=== PATIENT | female | born 1945 | race Caucasian/White ===

== ENCOUNTER → 2016-08-15 | Outpatient (CLI) | payer OTHER, MEDICARE ==
[~2016-08-15] MED LIST: ALBUAER2 INH; ASPI-232 PO; ATV5X PO; AZEL0.056 NAE; CYM/60 PO; DESO0.0562 TOP; DICL1GEL12 TOP; DONE10TA12 PO; DULO-24 PO; EYED OPB; FLUT1INH; IPRA1AER2 INH; LDXCR60 TOP; LISI-461 PO; LPR25 PO; LSX40 PO; MCRK/10 PO; MELO7.5T5 PO; MONT1TAB3 PO; OMEG10007 PO; OXGN; PANT1TAB48 PO; POLYCAP4 PO; POTA-327 PO; PRVC20 PO; RANI1TAB PO; SUCR1TAB PO; SULF800T23 PO; THYR15TA PO; THYR90TA PO
--- NOTE | 2016-08-15 15:19 | DIAGNOSTIC IMAGING REPORT ---
LEFT KNEE 2 VIEWS CLINICAL HISTORY: Left knee pain. FINDINGS: AP and crosstable lateral views of the left knee are compared to study dated 11/01/2015. The skeletal structures are osteopenic. No fracture is seen. There is mild to moderate tricompartmental degenerative joint space narrowing, greatest in the medial and patellofemoral compartments. There is mild degenerative beaking of the tibial spine. Large patellar enthesophytes are observed. There is no joint effusion. The overlying soft tissues are within normal limits. IMPRESSION: Osteopenia and arthritic change as above. No acute bony abnormality is seen in the left knee. There has been no significant change from 11/01/2015. Electronically signed by: Manish Coburn M.D. 08/15/2016 3:18 PM Dictated Date/Time: 08/15/2016 3:16 PM
--- NOTE | 2016-08-15 15:28 | DIAGNOSTIC IMAGING REPORT ---
RIGHT KNEE 1 OR 2 VIEWS ROUTINE CLINICAL HISTORY: Right knee pain status post trauma COMPARISON: 07/17/2016 DISCUSSION: No acute fractures are visualized. There is no radiographic evidence of a joint effusion. There is mild cortical thickening involving the medial aspect the proximal tibial metaphysis. This remains unchanged from prior studies dating back to October 2015.. There are mild degenerative changes present. IMPRESSION: 1. No acute fractures Electronically signed by: Olivier Means M.D. 08/15/2016 3:26 PM Dictated Date/Time: 08/15/2016 3:24 PM
--- NOTE | 2016-08-15 15:29 | DIAGNOSTIC IMAGING REPORT ---
RIBS BILATERAL WITH PA CHEST CLINICAL HISTORY: Fall. Bilateral rib pain. COMPARISON STUDY: Chest radiograph June 09, 2016. FINDINGS: There is no pneumothorax or pleural effusion. Evaluation is difficult given suboptimal penetration. There are median sternotomy wires. Cardiomegaly is unchanged. There is pulmonary vascular congestion. Prostatic aortic valve is noted as well as a prosthetic mitral valve. There are acute mildly displaced fractures of the left fifth, sixth and seventh ribs with a suspected acute nondisplaced fracture of the left eighth rib. There are acute mildly displaced fractures of the right fifth and sixth ribs. IMPRESSION: 1. No pneumothorax. 2. Acute mildly displaced fractures of the left fifth, sixth and seventh ribs with a suspected acute nondisplaced fracture of the left eighth rib. 3. Acute mildly displaced fractures of the right fifth and sixth ribs. 4. Linear left basilar opacity which favors atelectasis. Electronically signed by: Darvin Brand M.D. 08/15/2016 3:28 PM Dictated Date/Time: 08/15/2016 3:22 PM [facility]
== END | disposition home or self-care (01) ==
LOC: C.RAD1850 14:11
PROVIDERS: ATTEND Internal Medicine
DX: R07.81 Pleurodynia (principal); M25.569 Pain in unspecified knee

== ENCOUNTER → 2016-08-26 | Outpatient (CLI) | payer OTHER, MEDICARE ==
[2016-08-26 17:34] LABS: BASO % 0.3 %; BASO ABS # 0.03 K/uL (0-0.2); COMPLETE YES; EOS % 1.9 %; HEMATOCRIT 38.9 % (37-47); IG% 0.2 %; LYMPH % 19.9 %; LYMPH ABS # 1.94 K/uL (1.2-3.4); MEAN CELL VOLUME 79.1 fL (80-100); MEAN CORPUSCULAR HEMOGLOBIN 24.2 pg (25-34); MEAN CORPUSCULAR HGB CONC 30.6 g/dl (32-36); MEAN PLATELET VOLUME 10.4 fL (7.4-10.4); MONO % 9.9 %; NEUT % 67.8 %; PLATELET COUNT 306 K/uL (130-400); RED BLOOD COUNT 4.92 M/uL (4.2-5.4); WHITE BLOOD COUNT 9.75 K/uL (4.8-10.8)
[2016-08-26 17:48] LABS: RHEUMATOID FACTOR < 10.0 U/mL (0-15)
[2016-08-30 14:15] LABS: ALBUMIN 3.6 G/DL (3.8-4.8); CYCLIC CITRULLINATED PEPT IGG <16 UNITS (<20); GAMMA GLOBULIN 0.9 G/DL (0.8-1.7); HLA-B27** TC 528X NEGATIVE (NEGATIVE); TOTAL PROTEIN 6.5 G/DL (6.2-8.3)
== END | disposition home or self-care (01) ==
LOC: C.LAB1850 15:57
PROVIDERS: ATTEND Internal Medicine Rheumatology
DX: D64.9 Anemia, unspecified (principal); L40.9 Psoriasis, unspecified; M15.9 Polyosteoarthritis, unspecified; M81.0 Age-related osteoporosis without current pathological fracture; M25.569 Pain in unspecified knee; E55.9 Vitamin D deficiency, unspecified

== ENCOUNTER → 2016-09-04 | Outpatient (CLI) | payer OTHER, MEDICARE ==
[~2016-09-04] MED LIST changes: -SULF800T23 PO
--- NOTE | 2016-09-04 12:39 | DIAGNOSTIC IMAGING REPORT ---
RIGHT HAND 3 VIEWS CLINICAL HISTORY: Right hand pain. Fall. FINDINGS: 3 views of the right hand are compared to study dated 07/17/2016. The skeletal structures are osteopenic. There is no radiographic evidence of fracture. Osteoarthritic change is present involving the interphalangeal joints, distal greater than proximal. Erosive osteoarthritis is seen involving the second and the third distal interphalangeal joints. Milder arthritic change is also seen at the first carpometacarpal and first metacarpophalangeal joints. Mild soft tissue swelling is present around the wrist. IMPRESSION: 1. Soft tissue swelling without radiographic evidence of acute fracture. 2. Osteopenia and arthritic change as above. Findings are similar to the 07/17/2016 examination. Electronically signed by: Manish Coburn M.D. 09/04/2016 12:37 PM Dictated Date/Time: 09/04/2016 12:32 PM
== END | disposition home or self-care (01) ==
LOC: C.RAD1850 12:11
PROVIDERS: ATTEND Internal Medicine
DX: M85.832 Other specified disorders of bone density and structure, left forearm (principal); M79.641 Pain in right hand; W19.XXXA Unspecified fall, initial encounter

== ENCOUNTER → 2016-09-04 | Outpatient (CLI) | payer OTHER, MEDICARE | END | disposition home or self-care (01) | LOC: C.MAMM 12:32 | PROVIDERS: ATTEND Internal Medicine | DX: M85.832 Other specified disorders of bone density and structure, left forearm (principal) ==

== ENCOUNTER → 2016-09-17 | Outpatient (CLI) | payer OTHER, MEDICARE ==
[2016-09-17 17:34] LABS: BLOOD UREA NITROGEN 31 mg/dl (7-18); BUN/CREATININE RATIO 28.3 (10-20); CALCIUM 9.2 mg/dl (8.5-10.1); CARBON DIOXIDE 29 mmol/L (21-32); CHLORIDE 103 mmol/L (98-107); GLUCOSE 146 mg/dl (70-99); POTASSIUM 4.1 mmol/L (3.5-5.1); SODIUM 141 mmol/L (136-145)
--- NOTE | 2016-09-22 14:27 | CODING QUERY MEDICAL NECESSITY ---
SUPPORTING DIAGNOSIS NEEDED A supporting diagnosis is required for the test/procedure performed on this patient in order for us to be reimbursed by the patient's insurance. Please provide a supporting diagnosis for the following test/procedure listed below next to the test name along with your signature. *If there is no additional diagnosis for this patient that would support the following test/procedure please document that below next to the test/procedure. Test(s)/Procedure(s) that require a supporting diagnosis: * VITAMIN D 25-HYDROXY DIAGNOSIS: * DOS: 09/17/16 Provider Signature: Date: Thank you Linda Leavitt [facility] Information Management Once completed, please kindly fax back to [phone] For questions please call [phone]
== END | disposition home or self-care (01) ==
LOC: C.LABBFT 17:56
PROVIDERS: ATTEND Internal Medicine
DX: M85.80 Other specified disorders of bone density and structure, unspecified site (principal); M19.90 Unspecified osteoarthritis, unspecified site; E05.00 Thyrotoxicosis with diffuse goiter without thyrotoxic crisis or storm; E89.0 Postprocedural hypothyroidism; M81.0 Age-related osteoporosis without current pathological fracture

== ENCOUNTER → 2016-10-08 | Outpatient (CLI) | payer OTHER, MEDICARE ==
--- NOTE | 2016-10-08 15:45 | DIAGNOSTIC IMAGING REPORT ---
WHOLE BODY BONE SCAN HISTORY: Whole-body pain. LUMBAR SPINE STENOSIS RADIOTRACER: 26.4 mCi Tc-99m MDP STUDY/IMAGES: Planar anterior and posterior whole body imaging was performed 3 hours following the intravenous administration of radiotracer. COMPARISON: Lumbar spine 05/31/2013. FINDINGS: Symmetric radiotracer uptake within the calvarium favors hyperostosis as seen on the prior brain MRI. Radiotracer uptake within the shoulders and left knee consistent with degenerative change. Linear radiotracer uptake at the sternum consistent with poststernotomy changes. Multiple small focal areas of radiotracer uptake within the anterior costochondral junctions is likely due to old trauma or postoperative changes. Mild radiotracer uptake seen within the facets of the lower thoracic and lumbar spine consistent with degenerative change. Mild linear radiotracer uptake seen within the mid thoracic spine is also likely related to degenerative change. There is urine contamination overlying the lower lumbar spine and right hemipelvis on the posterior views. Suboptimal evaluation of the osseous structures due to the patient's large body habitus. IMPRESSION: Scattered areas of radiotracer uptake within the axial and appendicular skeleton as described above consistent with old posttraumatic/postoperative changes and degenerative changes. Electronically signed by: John Lemus M.D. 10/08/2016 3:44 PM Dictated Date/Time: 10/08/2016 3:35 PM
== END | disposition home or self-care (01) ==
LOC: C.NUCL 11:13
PROVIDERS: ATTEND Physical Medicine & Rehabilitation
DX: M25.561 Pain in right knee (principal); M48.06 Spinal stenosis, lumbar region

== ENCOUNTER → 2016-11-07 | Outpatient (CLI) | payer OTHER, MEDICARE ==
--- NOTE | 2016-11-07 14:18 | DIAGNOSTIC IMAGING REPORT ---
LEFT SHOULDER MIN 2 VIEWS ROUTINE CLINICAL HISTORY: Left shoulder pain COMPARISON: None. DISCUSSION: No fractures or dislocations are visualized. There is a tiny soft tissue calcification located inferior to the acromion on the internally rotated view. No destructive lesions are visualized. IMPRESSION: 1. No fractures or dislocations 2. No destructive lesions are visualized Electronically signed by: Olivier Means M.D. 11/07/2016 2:16 PM Dictated Date/Time: 11/07/2016 2:15 PM
--- NOTE | 2016-11-07 15:02 | DIAGNOSTIC IMAGING REPORT ---
RIGHT HAND 3 VIEWS HISTORY: Right HAND PAIN COMPARISON: None. FINDINGS: There is no fracture or dislocation. Soft tissue swelling at the thumb. Severe osteoarthritis at the first carpometacarpal joint. Mild scapholunate dissociation. Moderate osteoarthritis at the DIP and PIP joints. No radiopaque foreign bodies. IMPRESSION: 1. No fractures within the right hand. 2. Soft tissue swelling within the right thumb. 3. Severe osteoarthritis at the first carpometacarpal joint. Electronically signed by: John Lemus M.D. 11/07/2016 3:00 PM Dictated Date/Time: 11/07/2016 2:56 PM
--- NOTE | 2016-11-07 17:07 | DIAGNOSTIC IMAGING REPORT ---
RIGHT SHOULDER 3 VIEWS HISTORY: M25.511 Bilateral shoulder pain, unspecified [id number] Right COMPARISON: None. FINDINGS: No fractures. Mild glenohumeral joint osteoarthritis. Soft tissues are unremarkable. The right clavicle is intact. Mild inferior subluxation of the humeral head in relation to the glenoid. IMPRESSION: 1. No fractures within the right shoulder. 2. Mild inferior subluxation of the humeral head in relation to the glenoid. No definite dislocation. Electronically signed by: John Lemus M.D. 11/07/2016 5:05 PM Dictated Date/Time: 11/07/2016 2:21 PM
== END | disposition home or self-care (01) ==
LOC: C.RAD 13:40
PROVIDERS: ATTEND Physician Assistant Medical
DX: M18.11 Unilateral primary osteoarthritis of first carpometacarpal joint, right hand (principal); M25.511 Pain in right shoulder; M25.512 Pain in left shoulder

== ENCOUNTER → 2016-11-20 | Outpatient (CLI) | payer OTHER, MEDICARE | END | disposition home or self-care (01) | LOC: C.LABSPEC 09:49 | PROVIDERS: ATTEND Dermatology | DX: S81.802A Unspecified open wound, left lower leg, initial encounter (principal); X58.XXXA Exposure to other specified factors, initial encounter ==

== ENCOUNTER → 2016-12-10 | Outpatient (CLI) | payer OTHER, MEDICARE ==
--- NOTE | 2016-12-10 16:15 | DIAGNOSTIC IMAGING REPORT ---
RIGHT HAND MRI HISTORY: RIGHT HAND PAIN TECHNIQUE: Multiplanar multisequence 0.7 Jade open MRI of the right hand was performed without the use of intravenous contrast. COMPARISON STUDY: Right hand 11/07/2016. FINDINGS: Difficult evaluation of the hand due to the mild motion artifact and suboptimal resolution given the open MRI. Moderate osteoarthritis at the first carpometacarpal joint demonstrated by joint space narrowing. No definite bony destruction identified. There is a [id number] joint effusion and the first carpometacarpal joint. There is a normal marrow signal intensity seen within the adjacent visualized osseous structures. No definite fracture identified. Mild subluxation at the first carpometacarpal joint without dislocation. Soft tissue swelling within the thumb. Dorsal and bone are tendons appear to be normal in course, caliber, and signal intensity. IMPRESSION: Difficult evaluation of the hand due to mild motion artifact and suboptimal resolution on the open MRI. No definite fracture. Soft tissue swelling within the thumb and a small joint effusion at the first carpometacarpal joint. There is also moderate osteoarthritis at the first carpometacarpal joint with mild subluxation without dislocation. Electronically signed by: John Lemus M.D. 12/10/2016 4:13 PM Dictated Date/Time: 12/10/2016 4:07 PM
== END | disposition home or self-care (01) ==
LOC: C.OPENMRI 14:39
PROVIDERS: ATTEND Internal Medicine
DX: M79.643 Pain in unspecified hand (principal)

== ENCOUNTER → 2016-12-16 | Outpatient (CLI) | payer OTHER, MEDICARE ==
[2016-12-17 06:31] LABS: ESTIMATED AVERAGE GLUCOSE 137 mg/dl; HA1C FLAG Normal (Normal)
== END | disposition home or self-care (01) ==
LOC: C.LABBFT 15:22
PROVIDERS: ATTEND Internal Medicine
DX: E55.9 Vitamin D deficiency, unspecified (principal); E11.9 Type 2 diabetes mellitus without complications

== ENCOUNTER 2017-01-27 15:20 | Emergency (ER) | payer OTHER, MEDICARE ==
[~2017-01-27] VITALS: Ht 154.9 cm; Wt 102.0 kg
[~2017-01-27 15:20] MED LIST changes: -CYM/60 PO; -DONE10TA12 PO; -MCRK/10 PO
[2017-01-27 15:28] VITALS: TEMP 36.6; Ht 154.9 cm; Wt 102.0 kg
[2017-01-27] MEDS ORDERED: SODIUM CHLORIDE 0.9% 1000ML 1,000 ML IV STA (15:57)
[2017-01-27 16:10] LABS: BASO % 0.2 %; BASO ABS # 0.02 K/uL (0-0.2); COMPLETE YES; EOS % 1.4 %; HEMATOCRIT 42.4 % (37-47); IG% 0.2 %; LYMPH % 18.7 %; LYMPH ABS # 1.69 K/uL (1.2-3.4); MEAN CORPUSCULAR HEMOGLOBIN 25.9 pg (25-34); MEAN CORPUSCULAR HGB CONC 30.4 g/dl (32-36); MEAN PLATELET VOLUME 9.9 fL (7.4-10.4); MONO % 11.1 %; NEUT % 68.4 %; PLATELET COUNT 268 K/uL (130-400); RED BLOOD COUNT 4.99 M/uL (4.2-5.4); WHITE BLOOD COUNT 9.03 K/uL (4.8-10.8)
--- NOTE | 2017-01-27 16:21 | DIAGNOSTIC IMAGING REPORT ---
CHEST ONE VIEW PORTABLE CLINICAL HISTORY: Weakness COMPARISON STUDY: 08/15/2016 FINDINGS: The study is somewhat limited from a technical standpoint due to the patient's large body habitus. The heart is enlarged. There are postsurgical changes of midline sternotomy. There is mild vascular prominence without evidence of overt edema. There are bibasilar opacities likely atelectatic although an inflammatory process could appear similar.[ IMPRESSION: 1. Technically limited study secondary to patient's large body habitus 2. Cardiomegaly and mild vascular prominence without evidence of overt failure 3. Bibasilar opacities likely atelectatic, although an infectious/inflammatory process could appear similar Electronically signed by: Olivier Means M.D. 01/27/2017 4:19 PM Dictated Date/Time: 01/27/2017 4:16 PM
[2017-01-27] MEDS ORDERED: DONE10TA12 PO (16:30)
[2017-01-27] MEDS ORDERED: MCRK/10 PO (16:30)
[2017-01-27] MEDS ORDERED: CYM/60 PO (16:30)
[2017-01-27 16:49] LABS: URINE APPEARANCE CLEAR (CLEAR); URINE BILIRUBIN NEG (NEG); URINE COLOR YELLOW; URINE NITRITE NEG (NEG); URINE SPECIFIC GRAVITY 1.024 (1.000-1.030); UROBILINOGEN NEG (NEG)
--- NOTE | 2017-01-27 16:51 | DIAGNOSTIC IMAGING REPORT ---
CT HEAD WITHOUT CONTRAST (CT) CLINICAL HISTORY: Weakness, confusion, disorientation. COMPARISON STUDY: 06/26/2015 TECHNIQUE: Axial CT of the brain is performed from the vertex to the skull base. IV contrast was not administered for this examination. CT DOSE: 537.48 mGy.cm FINDINGS: No intra or extra-axial mass lesions are visualized. There is no CT evidence of acute cortical infarction. There is no evidence of midline shift. There is no acute hemorrhage. No calvarial fractures are visualized. There are minor white matter hypodensities likely on a small vessel basis. There are few tiny basal ganglia lacunar infarcts, similar to the prior study There is no evidence of pathologic ventricular dilatation. There is no evidence of acute sinusitis. There is a stable 9 mm lytic focus within the right frontal bone. IMPRESSION: No acute intracranial findings Electronically signed by: Olivier Means M.D. 01/27/2017 4:50 PM Dictated Date/Time: 01/27/2017 4:48 PM
[2017-01-27 16:53] LABS: MANUAL MICROSCOPIC REQUIRED? NO; REVIEW REQ? NO
[2017-01-27 16:53] LABS: BUN/CREATININE RATIO 36.3 (10-20); CALCIUM 9.2 mg/dl (8.5-10.1); CKMB/CK RATIO 2.3 (0-3.0); CREATININE 0.87 mg/dl (0.60-1.20); MAGNESIUM 2.1 mg/dl (1.8-2.4); POTASSIUM 4.7 mmol/L (3.5-5.1); THYROID STIMULATING HORMONE 0.868 uIu/ml (0.300-4.500)
[2017-01-27 19:20] VITALS: BP 162/96; PULSE 83; O2SAT 93
--- NOTE | 2017-01-28 01:01 | EMERGENCY ROOM VISIT NOTE ---
History Report prepared by Izzy: Heidy Giron Under the Supervision of: Dr. Ministerio Gomez M.D. First contact with patient: 15:53 Chief Complaint: CONFUSION Stated Complaint: CONFUSED AND DISORIENTED History of Present Illness The patient is a 72 year old female who presents to the Emergency Room with intermittent, progressive confusion over the last year. The patient's son states that the patient has been having intermittent bouts of confusion and memory loss over the past year. The patient's caregiver for the past three weeks states that she has noticed progressive confusion in those few weeks as well. 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 Nursing notes report that the patient was referred to the emergency department by her PCP for further evaluation and treatment. The patient's son states that the patient had a bout of confusion five days ago, but states that Thursday she appeared okay. The patient states that she fell three weeks ago and bruised her elbow. The patient's caregiver states that her Lasix was recently cut back. The patient complains that her abdomen hangs down. Pt denies LOC, headache, fevers, chills, diaphoresis, visual changes, neck pain, chest pain, breathing difficulties, nausea, vomiting , abdominal pain, back pain, melena, hematochezia, urinary symptoms, numbness, weakness, lymphadenopathy, rash, or other complaints. Source of History: patient, family (son), caregiver, nursing staff Onset: last year Position: other (global) Quality: other (progressive confusion) Timing: intermittent Review of Systems See HPI for pertinent positives and negatives. A total of ten systems were reviewed and were otherwise negative. Past Medical & Surgical Medical Problems: (1) Allergic rhinitis (2) Asthma (3) CHF (congestive heart failure) (4) EXTRINSIC ASTHMA, W (ACUTE) EXACERBATION (5) Hyperlipidemia Nec/Nos (6) Hypertension Nos (7) Implantation of aortic valve prosthesis or synthetic device (8) Morbid Obesity (9) Obstructive Sleep Apnea (Adult) (Pediatric) (10) Replacement of mitral valve with tissue graft Family History No pertinent family history Social History Smoking Status: Former Smoker Alcohol Use: none Drug Use: none Marital Status: Housing Status: unknown Occupation Status: retired Current/Historical Medications Scheduled Aspirin (Aspir-81), 1 TAB PO DAILY Donepezil Hydrochloride (Aricept), 10 MG PO HS Duloxetine HCl (Cymbalta), 60 MG PO HS Fluticasone Furoate-Vilanterol (Breo Ellipta), 1 INHA DAILY Furosemide (Furosemide), 40 MG PO DAILY Home O2 Therapy (Oxygen), 2 LITERS NA PRN Ipratropium-Albuterol (Combivent Respimat), 1 PUFFS INH QID Meloxicam (Mobic), 7.5 MG PO DAILY Metoprolol Tartrate (Lopressor), 25 MG PO BID Montelukast Sodium (Singulair), 10 MG PO DAILY Polysaccharide Iron Complex (Iferex 150), 150 MG PO DAILY Potassium Chloride (K-Tabs), 20 MEQ PO DAILY Pravastatin Sod (Pravastatin Sodium), 20 MG PO HS Thyroid ([place] Thyroid), 90 MG PO DAILY Scheduled PRN Diclofenac Sodium (Topical) (Voltaren 1% Top Gel), 4 GM TOP QID PRN for Pain Allergies Coded Allergies: Tomato (Verified Allergy, Intermediate, ACID , 01/27/17) SPAGHETTI SAUCE Penicillins (Verified Allergy, Mild, TOLERATES ROCEPHIN/CEFTIN FROM PAST ADMS, 01/27/17) Azithromycin (Verified Allergy, Unknown, RASH, 01/27/17) Doxycycline (Verified Allergy, Unknown, urticaria, 01/27/17) Quinolones (Verified Allergy, Unknown, AVELOX- FACIAL ERYTHEMA, 01/27/17) Physical Exam Vital Signs Date Time Temp Pulse Resp B/P (MAP) Pulse Ox O2 Delivery O2 Flow Rate FiO2 01/27/17 19:20 83 18 162/96 93 01/27/17 18:34 83 18 176/79 98 Room Air 01/27/17 17:13 76 18 173/77 95 Room Air 01/27/17 16:06 73 01/27/17 15:28 36.6 74 22 140/64 94 Room Air Physical Exam GENERAL: Awake, alert, well-appearing, in no distress HENT: Normocephalic, atraumatic. Oropharynx unremarkable. EYES: Normal conjunctiva. Sclera non-icteric. NECK: Supple. No nuchal rigidity. FROM. No JVD. RESPIRATORY: Clear to auscultation. CARDIAC: Regular rate, normal rhythm. Extremities warm and well perfused. Pulses equal. ABDOMEN: Soft, non-distended. No tenderness to palpation. No rebound or guarding. No masses. RECTAL: Deferred. MUSCULOSKELETAL: Chest examination reveals no tenderness. The back is symmetrical on inspection without obvious abnormality. There is no CVA tenderness to palpation. No joint edema. LOWER EXTREMITIES: Calves are equal size bilaterally and non-tender. No edema. No discoloration. NEURO: Mildly confused sensorium. No sensory or motor deficits noted. SKIN: No rash or jaundice noted. Medical Decision & Procedures ER Provider Diagnostic Interpretation: Radiology results as stated below per my review and radiologist interpretation: CHEST ONE VIEW PORTABLE CLINICAL HISTORY: Weakness COMPARISON STUDY: 08/15/2016 FINDINGS: The study is somewhat limited from a technical standpoint due to the patient's large body habitus. The heart is enlarged. There are postsurgical changes of midline sternotomy. There is mild vascular prominence without evidence of overt edema. There are bibasilar opacities likely atelectatic although an inflammatory process could appear similar.[ IMPRESSION: 1. Technically limited study secondary to patient's large body habitus 2. Cardiomegaly and mild vascular prominence without evidence of overt failure 3. Bibasilar opacities likely atelectatic, although an infectious/inflammatory process could appear similar Electronically signed by: Olivier Means M.D. 01/27/2017 4:19 PM Dictated Date/Time: 01/27/2017 4:[address] HEAD WITHOUT CONTRAST (CT) CLINICAL HISTORY: Weakness, confusion, disorientation. COMPARISON STUDY: 06/26/2015 TECHNIQUE: Axial CT of the brain is performed from the vertex to the skull base. IV contrast was not administered for this examination. CT DOSE: 537.48 mGy.cm FINDINGS: No intra or extra-axial mass lesions are visualized. There is no CT evidence of acute cortical infarction. There is no evidence of midline shift. There is no acute hemorrhage. No calvarial fractures are visualized. There are minor white matter hypodensities likely on a small vessel basis. There are few tiny basal ganglia lacunar infarcts, similar to the prior study There is no evidence of pathologic ventricular dilatation. There is no evidence of acute sinusitis. There is a stable 9 mm lytic focus within the right frontal bone. IMPRESSION: No acute intracranial findings Electronically signed by: Olivier Means M.D. 01/27/2017 4:50 PM Dictated Date/Time: 01/27/2017 4:48 PM Laboratory Results 01/27/17 16:00 Red Blood Count 4.99, Mean Corpuscular Volume 85.0, Mean Corpuscular Hemoglobin 25.9, Mean Corpuscular Hemoglobin Concent 30.4, Mean Platelet Volume 9.9, Neutrophils (%) (Auto) 68.4, Lymphocytes (%) (Auto) 18.7, Monocytes (%) (Auto) 11.1, Eosinophils (%) (Auto) 1.4, Basophils (%) (Auto) 0.2, Neutrophils # (Auto ) 6.17, Lymphocytes # (Auto) 1.69, Monocytes # (Auto) 1.00, Eosinophils # (Auto ) 0.13, Basophils # (Auto) 0.02 01/27/17 16:00 Test 01/27/17 16:00 01/27/17 16:30 White Blood Count 9.03 K/uL (4.8-10.8) Red Blood Count 4.99 M/uL (4.2-5.4) Hemoglobin 12.9 g/dL (12.0-16.0) Hematocrit 42.4 % (37-47) Mean Corpuscular Volume 85.0 fL (80-100) Mean Corpuscular Hemoglobin 25.9 pg (25-34) Mean Corpuscular Hemoglobin Concent 30.4 g/dl (32-36) Platelet Count 268 K/uL (130-400) Mean Platelet Volume 9.9 fL (7.4-10.4) Neutrophils (%) (Auto) 68.4 % Lymphocytes (%) (Auto) 18.7 % Monocytes (%) (Auto) 11.1 % Eosinophils (%) (Auto) 1.4 % Basophils (%) (Auto) 0.2 % Neutrophils # (Auto) 6.17 K/uL (1.4-6.5) Lymphocytes # (Auto) 1.69 K/uL (1.2-3.4) Monocytes # (Auto) 1.00 K/uL (0.11-0.59) Eosinophils # (Auto) 0.13 K/uL (0-0.5) Basophils # (Auto) 0.02 K/uL (0-0.2) RDW Standard Deviation 52.2 fL (36.4-46.3) RDW Coefficient of Variation 16.7 % (11.5-14.5) Immature Granulocyte % (Auto) 0.2 % Immature Granulocyte # (Auto) 0.02 K/uL (0.00-0.02) Anion Gap 8.0 mmol/L (3-11) Est Creatinine Clear Calc Drug Dose 62.2 ml/min Estimated GFR () 76.1 Estimated GFR (Non- 65.6 BUN/Creatinine Ratio 36.3 (10-20) Calcium Level 9.2 mg/dl (8.5-10.1) Magnesium Level 2.1 mg/dl (1.8-2.4) Total Bilirubin 0.2 mg/dl (0.2-1) Direct Bilirubin mg/dl (0-0.2) Aspartate Amino Transf (AST/SGOT) 30 U/L (15-37) Alanine Aminotransferase (ALT/SGPT) 34 U/L (12-78) Alkaline Phosphatase 120 U/L (45-117) Total Creatine Kinase 213 U/L (26-192) Creatine Kinase MB 5.0 ng/ml (0.5-3.6) Creatine Kinase MB Ratio 2.3 (0-3.0) Troponin I 0.018 ng/ml (0-0.045) Total Protein 7.4 gm/dl (6.4-8.2) Albumin 3.4 gm/dl (3.4-5.0) Lipase 227 U/L (73-393) Thyroid Stimulating Hormone (TSH) 0.868 uIu/ml (0.300-4.500) Chemistry Specimen Hemolysis Urine Color YELLOW Urine Appearance CLEAR (CLEAR) Urine pH 5.0 (4.5-7.5) Urine Specific [place] 1.024 (1.000-1.030) Urine Protein NEG (NEG) Urine Glucose (UA) NEG (NEG) Urine Ketones NEG (NEG) Urine Occult Blood NEG (NEG) Urine Nitrite NEG (NEG) Urine Bilirubin NEG (NEG) Urine Urobilinogen NEG (NEG) Urine Leukocyte Esterase NEG (NEG) Laboratory results reviewed by me Medications Administered Medications (Trade) Dose Ordered Sig/Mode Route Start Time Stop Time Status Last Admin Dose Admin Sodium Chloride 1,000 ml @ 125 mls/hr Q8H STAT IV 01/27/17 15:57 01/27/17 19:59 DC 01/27/17 15:57 125 MLS/HR ECG Indication: other (confusion) Rate (beats per minute): 77 Rhythm: normal sinus Findings: LBBB (incomplete), nonspecific-ST abn ED Course 155: Ordered Sodium Chloride 1000 ml @ 125 mls/hr IV. 155: The patient was evaluated in room C1B. A complete history and physical exam was performed. 181: I reevaluated the patient and she feels fine. I discussed the exam findings with her and I discussed the treatment plan. We are going to get in touch with her family. 180: I spoke to the patients son at this time and he feels that the patient is at her baseline. I discussed all the exam findings with him and I discussed the treatment plan. He verbalized complete understanding and agreement. He feels comfortable taking the patient home. Medical Decision Blood pressure screening: Patient was found to have an elevated blood pressure and was referred to their primary doctor for recheck and further treatment. Medication Reconciliation: I attest that I have personally reviewed the patient' s current medication list Prior records/ancillary studies reviewed and summarized above. Nursing notes reviewed and agree them. Additional history obtained from family. They note on and off bouts of confusion over many months. The son also notes issues with memory. The patient's history was concerning for altered mental status. Differential diagnosis: Etiologies such as dementia, infection, hypoglycemia, electrolyte abnormalities , cardiac sources, intracerebral event, toxicologic, neurologic, as well as others were entertained. Physical examination: As above. Nonfocal. ER treatment provided: IV Lock Normal saline hydration at 125 milliliters per hour. On reassessment the patient felt well. Diagnostics interpretation by me: ECG: As above. LVH. The labs revealed an unremarkable CBC and chemistry panel. The patient has a minimal elevation of total CK. Her urinalysis is negative. Her magnesium as well as thyroid were negative. Imaging studies: Head CT and Chest x-ray as above The patient's other symptoms and emergency Department. I discussed the issues with him. They noted a progressive decline and increasing frequency of confusion for her. This sounds consistent with the onset of dementia. She will need close outpatient follow-up with her family physician. There is no acute finding to warrant hospitalization at this point time and family feels comfortable. They do have caregivers with her when family is not present. The patient wants to go home. She does not feel ill. She worsens in any way she will be brought back to the emergency from for reevaluation. By the evaluation outlined above other emergent etiologies such as those listed in the differential, as well as others, were deemed relatively unlikely. The patient was educated about the findings as listed above. All questions were answered and the patient was pleased with the treatment. Return instructions were outlined and the patient was discharged in stable condition. The patient was referred to her PCP for follow-up for a recheck of the current condition. Impression Primary Impression: Confusion Scribe Attestation The scribe's documentation has been prepared under my direction and personally reviewed by me in its entirety. I confirm that the note above accurately reflects all work, treatment, procedures, and medical decision making performed by me. Departure Information Dispostion Home / Self-Care Referrals Trey Faulkner M.D. (PCP) Forms HOME CARE DOCUMENTATION FORM, IMPORTANT VISIT INFORMATION, WORK / SCHOOL INSTRUCTIONS Patient Instructions My [facility] Additional Instructions Follow-up with Dr. Faulkner's office this week. Continue current medications. Activity as tolerated. Rest. Eat healthy. Return to the ER for worsening confusion, headache, passing out, chest pain, difficulty breathing, fevers, vomiting, worsening of your condition, or as needed.
== END 2017-01-27 19:32 | disposition home or self-care (01) ==
LOC: C.EDB 15:21 → C.EDC 19:32
DX: R41.0 Disorientation, unspecified (principal); J30.9 Allergic rhinitis, unspecified; J45.909 Unspecified asthma, uncomplicated; I11.0 Hypertensive heart disease with heart failure; E78.5 Hyperlipidemia, unspecified; E66.01 Morbid (severe) obesity due to excess calories; Z95.2 Presence of prosthetic heart valve; G47.33 Obstructive sleep apnea (adult) (pediatric); Z87.891 Personal history of nicotine dependence; Z79.82 Long term (current) use of aspirin

== ENCOUNTER → 2017-02-04 | Outpatient (CLI) | payer OTHER, MEDICARE ==
[~2017-02-04] MED LIST changes: -ALBUAER2 INH; -ATV5X PO; -AZEL0.056 NAE; +CYM/60 PO; -DESO0.0562 TOP; +DONE10TA12 PO; -DULO-24 PO; -EYED OPB; -LDXCR60 TOP; -LISI-461 PO; +MCRK/10 PO; -OMEG10007 PO; -PANT1TAB48 PO; -POTA-327 PO; -RANI1TAB PO; -SUCR1TAB PO; -THYR15TA PO
[2017-02-04 17:35] LABS: MANUAL MICROSCOPIC REQUIRED? NO; REVIEW REQ? NO; URINE APPEARANCE CLEAR (CLEAR); URINE BILIRUBIN NEG (NEG); URINE COLOR YELLOW; URINE EPITHELIAL CELL AUTO >30 /lpf (0-5); URINE NITRITE NEG (NEG); URINE SPECIFIC GRAVITY 1.028 (1.000-1.030); UROBILINOGEN NEG (NEG); ZZUR CULT IF INDIC CLEAN CATCH YES
[2017-02-04 17:39] LABS: BASO % 0.2 %; BASO ABS # 0.02 K/uL (0-0.2); COMPLETE YES; EOS % 1.6 %; HEMATOCRIT 43.1 % (37-47); IG% 0.3 %; LYMPH % 18.5 %; LYMPH ABS # 1.81 K/uL (1.2-3.4); MEAN CELL VOLUME 86.5 fL (80-100); MEAN CORPUSCULAR HEMOGLOBIN 25.5 pg (25-34); MEAN CORPUSCULAR HGB CONC 29.5 g/dl (32-36); MONO % 7.7 %; NEUT % 71.7 %; PLATELET COUNT 287 K/uL (130-400); RED BLOOD COUNT 4.98 M/uL (4.2-5.4)
[2017-02-04 18:03] LABS: ALT/SGPT 36 U/L (12-78); AST/SGOT 26 U/L (15-37); BLOOD UREA NITROGEN 27 mg/dl (7-18); BUN/CREATININE RATIO 35.4 (10-20); CALCIUM 9.1 mg/dl (8.5-10.1); CARBON DIOXIDE 31 mmol/L (21-32); CHLORIDE 107 mmol/L (98-107); CREATININE 0.75 mg/dl (0.60-1.20); GLUCOSE 114 mg/dl (70-99); POTASSIUM 4.1 mmol/L (3.5-5.1); SODIUM 143 mmol/L (136-145)
[2017-02-04 18:15] LABS: ALB/GLOB RATIO 0.9 (0.9-2); ALKALINE PHOSPHATASE 115 U/L (45-117)
== END | disposition home or self-care (01) ==
LOC: C.LABBFT 17:48
PROVIDERS: ATTEND Physician Assistant
DX: R41.0 Disorientation, unspecified (principal); F03.90 Unspecified dementia, unspecified severity, without behavioral disturbance, psychotic disturbance, mood disturbance, and anxiety; E89.0 Postprocedural hypothyroidism